=== PATIENT | female | born 1995 | race Caucasian/White ===

== ENCOUNTER → 2021-01-12 | Outpatient (CLI) | payer OTHER ==
[2021-01-13 11:54] LABS: ANA SCREEN with REFLEX Negative (Negative)
[2021-01-15 01:11] LABS: BAKERS YEAST ALLERGEN COUNT <0.10 kU/L (()); CORN ALLERGEN COUNT <0.10 kU/L (()); EGG WHITE ALLERGEN COUNT <0.10 kU/L (()); MILK ALLERGEN COUNT <0.10 kU/L (()); ORANGE ALLERGEN COUNT <0.10 kU/L (()); PEANUT ALLERGEN COUNT <0.10 kU/L (()); RICE ALLERGEN COUNT <0.10 kU/L (()); SOYBEAN ALLERGEN COUNT <0.10 kU/L (()); STRAWBERRY ALLERGEN COUNT <0.10 kU/L (()); TOMATO ALLERGEN COUNT <0.10 kU/L (()); WHEAT ALLERGEN COUNT <0.10 kU/L (())
== END ==
LOC: LAB 15:49
PROVIDERS: Family Medicine
DX: L65.9 Nonscarring hair loss, unspecified (principal)

== ENCOUNTER → 2021-05-26 | Outpatient (CLI) | payer OTHER ==
[2021-05-26 23:33] LABS: T3 FREE 2.9 pg/mL (1.7-3.7)
== END ==
LOC: LAB 10:54
PROVIDERS: Family Medicine
DX: Z13.29 Encounter for screening for other suspected endocrine disorder (principal); L65.9 Nonscarring hair loss, unspecified